=== PATIENT | male | born 1965 ===

== ENCOUNTER 2018-09-13 12:22 | Inpatient (IN) | payer MEDICAID ==
[2018-09-13 13:32] LABS: BASO % 0.3 % (0.0-2.0); EOS % 0.3 % (0.0-4.0); LYMPH # 2.8 K/uL (1.0-4.3); LYMPH % 40.3 % (20.0-40.0); MEAN CELL VOLUME 94.1 fl (80.0-94.0); MEAN CORPUSCULAR HEMOGLOBIN 30.8 pg (27.0-31.0); MEAN CORPUSCULAR HGB CONC 32.7 g/dL (33.0-37.0); MEAN PLATELET VOLUME 8.2 fl (7.2-11.7); MONO # 0.8 K/uL (0.0-0.8); MONO % 11.1 % (0.0-10.0); NEUT # 3.4 K/uL (1.8-7.0); RBC 4.86 Mil/uL (4.40-5.90); RED CELL DISTRIBUTION WIDTH 13.9 % (11.5-14.5)
[2018-09-13 13:39] LABS: ALBUMIN 4.9 g/dL (3.5-5.0); ALT/SGPT 179 U/L (21-72); AST/SGOT 141 U/L (17-59); BLOOD UREA NITROGEN 11 mg/dl (9-20); CALCIUM 9.3 mg/dL (8.4-10.2); GFR NON-AFRICAN AMERICAN > 60
--- NOTE | 2018-09-13 13:53 | RAD ---
Date of service: 09/13/2018 HISTORY: medical clearance COMPARISON: No prior. TECHNIQUE: Chest PA and lateral FINDINGS: LUNGS: No active pulmonary disease. PLEURA: No significant pleural effusion identified. No pneumothorax apparent. CARDIOVASCULAR: No aortic atherosclerotic calcification present. Normal cardiac size. No pulmonary vascular congestion. OSSEOUS STRUCTURES: No significant abnormalities. VISUALIZED UPPER ABDOMEN: Normal. OTHER FINDINGS: None. IMPRESSION: No active disease.
[2018-09-13 14:41] LABS: URINE BILIRUBIN NEGATIVE (NEGATIVE); URINE BLOOD NEGATIVE (NEGATIVE); URINE COLOR YELLOW (YELLOW); URINE GLUCOSE (UA) NEG (Normal); URINE LEUKOCYTE ESTERASE NEG Leu/uL (Negative); URINE PROTEIN NEGATIVE (NEGATIVE); URINE UROBILINOGEN 0.2-1.0 mg/dL (0.2-1.0)
[2018-09-13 14:42] LABS: URINE CLARITY CLEAR (Clear)
--- NOTE | 2018-09-13 15:07 | ED PDOC ---
HPI: Psych/Substance Abuse Chief Complaint (Nursing): Psychiatric Evaluation Chief Complaint (Provider): Psychiatric Evaluation History Per: Patient History/Exam Limitations: no limitations Onset/Duration Of Symptoms: Days (GUITAR TEACHER) Current Symptoms Are (Timing): Still Present Additional Complaint(s): Sam Saldaña is a 53 year old male with a past medical history of depression and bipolar disorder, who was referred to the emergency department by his psychiatric clinic. Patient follows up with clinic in [place] but has not been since February. Upon his appointment today, his psychiatric PA reports that he expressed SI and increased depression because of family stressors at home. Patient was told to come into the ED for evaluation. PMD: No provider Past Medical History Reviewed: Historical Data, Nursing Documentation, Vital Signs Vital Signs: Last Vital Signs Temp 97 F L 09/13/18 12:27 Pulse 82 09/13/18 12:27 Resp 18 09/13/18 12:27 BP 155/90 H 09/13/18 12:27 Pulse Ox 100 09/13/18 12:27 - Medical History PMH: Bipolar Disorder, Depression, Hepatitis (C) Other PMH: liver cirrhosis - Surgical History Surgical History: No Surg Hx - Family History Family History: States: Unknown Family Hx - Social History Alcohol: Occasional Drugs: Other (IV drug use (last use: x1 week ago)) - Immunization History Hx Tetanus Toxoid Vaccination: Yes - Home Medications Home Medications: Ambulatory Orders Medication Instructions Recorded traMADol [Ultram] 50 mg PO Q4 PRN 09/13/18 - Allergies Allergies/Adverse Reactions: Allergies Allergy/AdvReac Type Severity Reaction Status Date / Time No Known Allergies Allergy Verified 09/13/18 12:27 Review of Systems ROS Statement: Except As Marked, All Systems Reviewed And Found Negative Psych: Positive for: Suicidal ideation, Other (depression) Physical Exam - Reviewed Nursing Documentation Reviewed: Yes Vital Signs Reviewed: Yes - Physical Exam Appears: Positive for: Non-toxic, No Acute Distress Head Exam: Positive for: ATRAUMATIC, NORMOCEPHALIC Skin: Positive for: Normal Color, Warm, Dry Eye Exam: Positive for: Normal appearance, EOMI, PERRL Neck: Positive for: Normal, Painless ROM, Supple Cardiovascular/Chest: Positive for: Regular Rate, Rhythm. Negative for: Murmur Respiratory: Positive for: Normal Breath Sounds. Negative for: Respiratory Distress Gastrointestinal/Abdominal: Positive for: Normal Exam, Soft. Negative for: Tenderness Back: Positive for: Normal Inspection. Negative for: L CVA Tenderness, R CVA Tenderness, Vertebral Tenderness Extremity: Positive for: Normal ROM. Negative for: Pedal Edema, Deformity Neurologic/Psych: Positive for: Alert, Oriented (x3). Negative for: Motor/Sensory Deficits - Laboratory Results Result Diagrams: 09/13/18 13:20 09/13/18 13:20 - ECG ECG Rhythm: Positive for: Sinus Rhythm (normal ) Rate: 82 O2 Sat by Pulse Oximetry: 100 (RA) Pulse Ox Interpretation: Normal Medical Decision Making Medical Decision Making: Time: 12:39 Plan: --urine screen --EKG --Alcohol serum --CMP --Drug Screen --CBC with differential --Chest x-ray --UA Time: 13:49 Chest X-ray FINDINGS: LUNGS: No active pulmonary disease. PLEURA: No significant pleural effusion identified. No pneumothorax apparent. CARDIOVASCULAR: No aortic atherosclerotic calcification present. Normal cardiac size. No pulmonary vascular congestion. OSSEOUS STRUCTURES: No significant abnormalities. VISUALIZED UPPER ABDOMEN: Normal. OTHER FINDINGS: None. IMPRESSION: No active disease. EKG Reading: NSR at 82 bpm no acute ischemic changes qTC 443 ms Crisis evaluated patient at bedside and case was discussed with Dr. Ontiveros by crisis. Patient's labs reveal mildly elevated transaminases, which are unchanged from previous labs. Scribe Attestation: Documented by Terry Merino, acting as a scribe for Ling Alexandra PA-C. Provider Scribe Attestation: All medical record entries made by the Scribe were at my direction and persona donnelly dictated by me. I have reviewed the chart and agree that the record accurately reflects my personal performance of the history, physical exam, medical decision making, and the department course for this patient. I have also personally directed, reviewed, and agree with the discharge instructions and disposition. Disposition - Clinical Impression Clinical Impression: Depression - Patient ED Disposition Is Patient to be Admitted: Yes Counseled Patient/Family Regarding: Studies Performed, Diagnosis - Disposition Disposition Time: 17:07 Condition: STABLE
[2018-09-13 15:16] LABS: OPIATES, UR NEGATIVE (NEGATIVE); PHENCYCLIDINE, UR NEGATIVE (NEGATIVE)
[2018-09-13 15:17] LABS: BARBITURATES, UR NEGATIVE (NEGATIVE); BENZODIAZEPINES, UR NEGATIVE (NEGATIVE)
[2018-09-13 17:07] VITALS: O2SAT 100
[2018-09-13] MEDS ORDERED: Magnesium Hydroxide Susp 30 ml UD PO PRN (17:41)
[2018-09-13] MEDS ORDERED: Alum-Mag Hydrox-Simethicone Susp (30 mL) PO PRN (17:41)
[2018-09-13] MEDS ORDERED: DiphenhydrAMINE 50 mg/ml Inj IM PRN (18:04)
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
--- NOTE | 2018-09-13 18:45 | CARD ---
APPROVED REPORT Date of service: 09/13/2018 EKG Measurement Heart [id number] <Conclusion> Sinus rhythm with premature atrial complexes Voltage criteria for left ventricular hypertrophy Abnormal ECG
--- NOTE | 2018-09-13 19:18 | CP.PCM.CON ---
History of Present Illness - History of Present Illness History of Present Illness: Chief Complaint - pt was admitted for suicidal ideation, Hospitalist team consulted to manage medical problem HPI: 53 y/o gent with history of Polysubstance Abuse ( Alcohol, Cocaine, Marijuana) , Hx of IVDU many years ago, Chronic Liver Didsease due to Hepatitis C and Alcohol, Depression was sent to [facility] for admission by his Psych provider due to suicidal ideation. History obtained from patient and his son Sam who is also his Surrogate Decision maker . According to patient, he has a long history of Drug abuse since he was young . Since he from his 4 years ago , his became depressed and started drinking more and went back to using drugs. He was diagnosed to have Hepatitis C and Chronic Liver Dis however since he had no insurance, he has not followed up on this. At present, he complains of feeling restless and has a slight epigastric discomfort. Denies headache, no chest pain, no SOB. Review of Systems - Review of Systems All systems: reviewed and no additional remarkable complaints except - Constitutional Constitutional: Fatigue. absent: Chills, Fever, Headache - EENT Eyes: absent: Change in Vision Ears: absent: Decreased Hearing Nose/Mouth/Throat: absent: Nasal Congestion, Nasal Discharge - Cardiovascular Cardiovascular: absent: Chest Pain, Leg Edema, Leg Ulcers, Orthopnea - Gastrointestinal Gastrointestinal: Heartburn. absent: Belching, Bloating, Nausea, Vomiting - Genitourinary Genitourinary: absent: Difficulty Urinating - Integumentary Additional comments: thickened skin patches extensor surface - Neurological Neurological: absent: Focal Weakness, Headaches, Loss of Vision - Psychiatric Psychiatric: Depression, Suicidal Ideation - Endocrine Endocrine: absent: Polydipsia, Polyphagia, Polyuria - Hematologic/Lymphatic Hematologic: absent: Easy Bleeding, Easy Bruising Past Patient History - Infectious Disease Hx of Infectious Diseases: None - Tetanus Immunizations Tetanus Immunization: Unknown - Past Medical History & Family History Past Medical History?: Yes Past Family History: Reviewed and not pertinent - Past Social History Smoking Status: Heavy Smoker > 10 Cigarettes Daily Chewing Tobacco Use: No Cigar Use: No 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) Alcohol: > 2 Drinks/Day Drugs: Cannabis, Cocaine, Other (IV drug use (last use: x1 week ago)) Home Situation {Lives}: Alone Domestic Violence: Negative - CARDIAC Hx Cardiac Disorders: No Hx Hypertension: No - PULMONARY Hx Tuberculosis: No - NEUROLOGICAL HX Cerebrovascular Accident: No Hx Seizures: No - HEENT Hx HEENT Problems: No - RENAL Hx Chronic Kidney Disease: No - ENDOCRINE/METABOLIC Hx Endocrine Disorders: No - HEMATOLOGICAL/ONCOLOGICAL Hx Cancer: No Hx Hepatitis C: Yes Hx Human Immunodeficiency Virus (HIV): No - INTEGUMENTARY Hx Dermatological Problems: Yes Hx Eczema: Yes Hx Psoriasis: Yes - MUSCULOSKELETAL/RHEUMATOLOGICAL Hx Musculoskeletal Disorders: Yes Hx Arthritis: Yes Other/Comment: pt has hx of shoulder surgery - GASTROINTESTINAL Other/Comment: Chronic Liver Dis - Hep C - GENITOURINARY/GYNECOLOGICAL Hx Sexually Transmitted Disorders: No - PSYCHIATRIC Hx Anxiety: Yes Hx Bipolar Disorder: Yes Hx Depression: Yes Hx Physical Abuse: No Hx Sexual Abuse: No Hx Substance Use: Yes - SURGICAL HISTORY Hx Surgeries: Yes Hx Orthopedic Surgery: Yes Other/Comment: Cranial surgery when he was young - has metal plate - ANESTHESIA Hx Anesthesia: Yes Hx Anesthesia Reactions: No Meds Allergies/Adverse Reactions: Allergies Allergy/AdvReac Type Severity Reaction Status Date / Time No Known Allergies Allergy Verified 09/13/18 12:27 - Medications Medications: Current Medications Acetaminophen (Tylenol 325mg Tab) 650 mg PO Q4 PRN PRN Reason: moderate pain (4-7) Al Hydrox/Mg Hydrox/Simethicone (Maalox Plus 30 Ml) 30 ml PO Q4 PRN PRN Reason: Dyspepsia Diphenhydramine HCl (Benadryl) 50 mg PO Q6 PRN PRN Reason: Extrapyramidal Symptoms Diphenhydramine HCl (Benadryl) 50 mg PO HS PRN PRN Reason: Sleep Diphenhydramine HCl (Benadryl) 50 mg IM Q6 PRN PRN Reason: EPS / DYSTONIC REACTION Haloperidol (Haldol) 5 mg PO Q4 PRN PRN Reason: Agitation Haloperidol Lactate (Haldol) 5 mg IM Q4 PRN PRN Reason: Agitation, Unable to Take PO Lorazepam (Ativan) 2 mg IM Q4 PRN PRN Reason: Anxiety/Agitation,Unable PO Lorazepam (Ativan) 1 mg PO Q6 SHIVAM Magnesium Hydroxide (Milk Of Magnesia) 30 ml PO HS PRN PRN Reason: Constipation Pneumococcal Polyvalent Vaccine (Pneumovax 23 Vaccine) 0.5 ml IM .ONCE ONE Stop: 09/14/18 09:01 Physical Exam - Constitutional Appears: Non-toxic, In Acute Distress, Agitated - Head Exam Head Exam: NORMAL INSPECTION, NORMOCEPHALIC - Eye Exam Eye Exam: EOMI, Normal appearance, PERRL Pupil Exam: NORMAL ACCOMODATION - ENT Exam ENT Exam: Mucous Membranes Moist, Normal External Ear Exam - Neck Exam Neck exam: Positive for: Full Rom. Negative for: Meningismus - Respiratory Exam Respiratory Exam: NORMAL BREATHING PATTERN. absent: Chest Wall Tenderness, Rales, Wheezes, Respiratory Distress - Cardiovascular Exam Cardiovascular Exam: REGULAR RHYTHM, +S1, +S2 - GI/Abdominal Exam GI & Abdominal Exam: Normal Bowel Sounds, Soft. absent: Tenderness - Extremities Exam Extremities exam: Positive for: full ROM, normal capillary refill. Negative for: calf tenderness, pedal edema - Back Exam Back exam: FULL ROM. absent: CVA tenderness (L), CVA tenderness (R) - Neurological Exam Neurological exam: Alert, CN II-XII Intact, Oriented x3, Reflexes Normal - Psychiatric Exam Psychiatric exam: Anxious, Depressed - Skin Skin Exam: Dry Additional comments: hyperkeratotic patches extensor surface Results - Vital Signs Recent Vital Signs: Last Vital Signs Temp 98.6 F 09/13/18 16:56 Pulse 82 09/13/18 17:07 Resp 18 09/13/18 17:39 BP 130/89 09/13/18 16:56 Pulse Ox 100 09/13/18 17:07 - Labs Result Diagrams: 09/13/18 13:20 09/13/18 13:20 Labs: Laboratory Results - last 24 hr 09/13/18 09/13/18 09/13/18 13:20 13:20 14:16 WBC 7.0 RBC 4.86 Hgb 15.0 Hct 45.7 MCV 94.1 H MCH 30.8 MCHC 32.7 L RDW 13.9 Plt Count 235 MPV 8.2 Neut % (Auto) 48.0 L Lymph % (Auto) 40.3 H [place] % (Auto) 11.1 H Eos % (Auto) 0.3 Baso % (Auto) 0.3 Neut # (Auto) 3.4 Lymph # (Auto) 2.8 [place] # (Auto) 0.8 Eos # (Auto) 0.0 Baso # (Auto) 0.0 Sodium 140 Potassium 3.9 Chloride 98 Carbon Dioxide 29 Anion Gap 17 BUN 11 Creatinine 0.7 L Est GFR ( Amer) > 60 Est GFR (Non-Af Amer) > 60 Random Glucose 155 H Calcium 9.3 Total Bilirubin 1.0 AST 141 H ALT 179 H Alkaline Phosphatase 49 Total Protein 9.7 H Albumin 4.9 Globulin 4.8 H Albumin/Globulin Ratio 1.0 Urine Color Urine Clarity Urine pH Ur Specific [place] Urine Protein Urine Glucose (UA) Urine Ketones Urine Blood Urine Nitrate Urine Bilirubin Urine Urobilinogen Ur Leukocyte Esterase Urine RBC (Auto) Urine Microscopic WBC Urine Opiates Screen Negative Urine Methadone Screen Negative Ur Barbiturates Screen Negative Ur Phencyclidine Scrn Negative Ur Amphetamines Screen Negative U Benzodiazepines Scrn Negative U Oth Cocaine Metabols Positive H U Cannabinoids Screen Positive H Alcohol, Quantitative < 10 09/13/18 14:16 WBC RBC Hgb Hct MCV MCH MCHC RDW Plt Count MPV Neut % (Auto) Lymph % (Auto) [place] % (Auto) Eos % (Auto) Baso % (Auto) Neut # (Auto) Lymph # (Auto) [place] # (Auto) Eos # (Auto) Baso # (Auto) Sodium Potassium Chloride Carbon Dioxide Anion Gap BUN Creatinine Est GFR ( Amer) Est GFR (Non-Af Amer) Random Glucose Calcium Total Bilirubin AST ALT Alkaline Phosphatase Total Protein Albumin Globulin Albumin/Globulin Ratio Urine Color Yellow Urine Clarity Clear Urine pH 6.0 Ur Specific [place] 1.016 Urine Protein Negative Urine Glucose (UA) Neg Urine Ketones Negative Urine Blood Negative Urine Nitrate Negative Urine Bilirubin Negative Urine Urobilinogen 0.2-1.0 Ur Leukocyte Esterase Neg Urine RBC (Auto) < 1 Urine Microscopic WBC < 1 Urine Opiates Screen Urine Methadone Screen Ur Barbiturates Screen Ur Phencyclidine Scrn Ur Amphetamines Screen U Benzodiazepines Scrn U Oth Cocaine Metabols U Cannabinoids Screen Alcohol, Quantitative - EKG Data EKG Interpreted by: Myself EKG shows normal: Sinus rhythm Rate: Normal - Imaging and Cardiology Chest x-ray Status: Image reviewed by me, Report reviewed by me Assessment & Plan (1) Polysubstance abuse Status: Chronic (2) Abnormal LFTs Status: Chronic (3) Hepatitis C Status: Chronic (4) Psoriasis Status: Chronic (5) Heavy smoker Status: Chronic (6) Depression Status: Chronic - Assessment and Plan (Free Text) Assessment: (1) Polysubstance abuse Status: Chronic Abuses Alcohol, Cocaine , Marijuana Hx of Heroin IVDU - when he was young Pt is restless at present - may be starting to have withdrawal sxs Ativan prn start Thiamine (2) Abnormal LFTs Status: Chronic sec to Hep C and Alcohol Avoid Hepatotoxic meds (3) Hepatitis C Status: Chronic advised pt and son to see Liver specialist - son's wif works at [employer] and son will bring pt there for further mgt (4) Psoriasis Status: Chronic start steroid ointment (5) Heavy smoker Status: Chronic start Nicotine patch (6) Depression with suicidal ideation - mgt per Psych Status: Chronic
[2018-09-14 08:39] LABS: T4 10.8 ug/dl (5.5-11.0)
[2018-09-14] MEDS ORDERED: Pneumococcal 23-Valent Vaccine IM ONE (09:00)
[2018-09-14] MEDS ORDERED: Influenza Vaccine (5 YR UP)/PF 60 MCG/0.5 ML SYR IM ONE (09:00)
--- NOTE | 2018-09-14 16:33 | PCM.PSYCH ---
Initial Psychiatric Evaluation - Initial Psychiatric Evaluation Type of Admission: Voluntary Legal Status: Capacity Chief Complaint (in patient's own words): I am depressed and I have thoughts to hurt myself History of Present Illness and Precipitating Events: pt is 53 ys old male with previous diagnosis of bipolar disorder and polysubstance use, currently non compliant with medications or follow up, presented to ER , referred by provider due to severe depression, anxiety and suicidal ideation pt reported has been abstinent from drugs, but three years ago was from and children, was charged with domestic violence, became depressed, relapse on cocaine , heroin and alcohol, pt also recently lost his job was non compliant with medications, reported poor sleep, poor appetite, edginess anxiety and irritability, passive suicidal ideation, no active plan on the unit Current Medications: Active Medications Generic Name Dose Route Start Last Admin Trade Name Freq PRN Reason Stop Dose Admin Al Hydrox/Mg Hydrox/Simethicone 30 ml 09/13/18 17:41 Maalox Plus 30 Ml PO Q4 PRN Dyspepsia Diphenhydramine HCl 50 mg 09/13/18 17:41 Benadryl PO Q6 PRN Extrapyramidal Symptoms Diphenhydramine HCl 50 mg 09/13/18 17:54 09/13/18 21:31 Benadryl PO 50 mg HS PRN Administration Sleep Diphenhydramine HCl 50 mg 09/13/18 18:04 Benadryl IM Q6 PRN EPS / DYSTONIC REACTION Famotidine 20 mg 09/13/18 20:00 09/14/18 08:41 Pepcid PO 20 mg BID SHIVAM Administration Fluocinonide 1 applic 09/13/18 20:00 09/14/18 08:42 Lidex 0.05% Oint TOP 1 applic BID SHIVAM Administration Gabapentin 100 mg 09/14/18 17:00 Neurontin PO TID SHIVAM Haloperidol 5 mg 09/13/18 17:41 Haldol PO Q4 PRN Agitation Haloperidol Lactate 5 mg 09/13/18 17:41 Haldol IM Q4 PRN Agitation, Unable to Take PO Lorazepam 2 mg 09/13/18 17:41 Ativan IM Q4 PRN Anxiety/Agitation,Unable PO Lorazepam 1 mg 09/13/18 19:18 09/14/18 08:41 Ativan PO 1 mg Q6 PRN Administration Agitation Magnesium Hydroxide 30 ml 09/13/18 17:41 Milk Of Magnesia PO HS PRN Constipation Nicotine 1 patch 09/14/18 09:00 Nicoderm Cq TD DAILY SHIVAM Quetiapine Fumarate 25 mg 09/14/18 17:00 Seroquel PO BID SHIVAM Quetiapine Fumarate 100 mg 09/14/18 22:00 Seroquel PO HS SHIVAM Thiamine HCl 100 mg 09/14/18 09:00 09/14/18 08:41 Vitamin B1 Tab PO 100 mg DAILY SHIVAM Administration Past Psychiatric History - Past Psychiatric History Explanation of prior treatment: bipolar disorder, hx of non compliance History of Abuse: alcohol, opiate, cannabis , cocaine Pertinent Medical Hx (Current Medical&Sleep Prob, Allergies): Allergies Allergy/AdvReac Type Severity Reaction Status Date / Time No Known Allergies Allergy Verified 09/13/18 12:27 traMADol [Ultram] 50 mg PO Q4 PRN 09/13/18 Mental Status Examination - Personal Presentation Personal Presentation: Looks older than stated age - Affect Affect: Constricted, Depressed - Motor Activity Motor Activity: Psychomotor Agitation - Reliability in Providing Information Reliability in Providing Information: Fair - Speech Speech: Relevant - Mood Mood: Depressed, Anxious - Formal Thought Process Formal Thought Process: Circumstantial - Obsessions/Compulsions Obsessions: No Compulsions: No - Cognitive Functions Orientation: Person, Place, Situation Sensorium: Alert Attention/Concentration: Easily distracted Abstract Thinking: [place] Judgement: Imparied, as evidence by: Poor judgement, Imparied, as evidence by: Lack of insight into illness - Risk Risk: Suicidal, Withdrawal, Diminished functioning - Strength & Assets Inventory Strength & Assets Inventory: Employment history - Limitations Additional comments: poor compliance DSM 5 DX - DSM 5 DSM 5 Diagnosis: substance induced mood disorder bipolar disorder depressed polysubstance use - Recommended/Plan of Treatment Treatment Recommendations and Plan of Treatment: start seroquel 25mg bid seroquel 100mg qhs neurontin 100mg tid motivational group and supportive therapy
--- NOTE | 2018-09-15 12:39 | PCM.PYCHPN ---
Psychiatric Progress Note - Psychiatric Progress Note Patient seen today, length of contact: Pt evaluated, case discussed w/ team, chart reviewed Patient Chief Complaint: Depression/Insomnia Problems Identified/Issues Discussed: Pt continues to report feeling depressed w/ poor sleep and anxiety. He continues to report poor appetite and was irritable w/ financial writer. He denies active suicidal ideation/plan/intent. No AH/VH. No adverse effects to medications reported. Medication Change: Yes (Increase Seroquel) Medical Record Reviewed: Yes Consults ordered or reviewed: Medicine consult Mental Status Examination - Cognitive Function Orientation: Person, Place, Situation, Time Memory: Intact Association: WNL Fund of Knowledge: [facility] Decription of patient's judgement and insights: Poor I/J - Mood Mood: Depressed, Anxious - Affect Affect: Constricted, Depressed - Speech Speech: Appropriate - Formal Thought Process Formal Thought Process: Circumstantial Psychotic Thoughts and Behaviors: Denies AH/VH/paranoia - Suicidal Ideation Suicidal Ideation: No - Homicidal Ideation Homicidal Ideation: No Goal/Treatment Plan - Goal/Treatment Plan Need for Continued Stay: Severe depression anxiety Progress Toward Problem(s) and Goals/Treatment Plan: Bipolar Disorder, current episode depressed; Substance Induced Mood Disorder; Cocaine/Heroin/Alcohol Use Disorders -Increase Seroquel -Continue Neurontin -Individual and group therapy -Psychoeducation -Disposition planning
--- NOTE | 2018-09-16 14:17 | PCM.PYCHPN ---
Psychiatric Progress Note - Psychiatric Progress Note Patient seen today, length of contact: Pt evaluated, case discussed w/ team, chart reviewed Patient Chief Complaint: I still have poor sleep Problems Identified/Issues Discussed: pt on evaluation reported feeling less anxious, continues to have poor sleep with early insomnia, discussed increasing seroquel, no reported side effects, pt encouraged to attend groups, motivational therapy provided in reference to e ffect of substance use on current mental status pt denied any current suicidal or homicidal ideation denied perceptual disturbances Medical Problems: bipolar disorder, hx of non compliance DSM 5 Symptoms Update: bipolar disorder depressed Medication Change: Yes (Increase Seroquel) Medical Record Reviewed: Yes Mental Status Examination - Cognitive Function Orientation: Person, Place, Situation, Time Memory: Intact Attention: WNL Concentration: WNL Association: WNL Fund of Knowledge: WNL - Mood Mood: Depressed, Anxious - Affect Affect: Constricted, Depressed - Speech Speech: Appropriate - Formal Thought Process Formal Thought Process: Circumstantial Psychotic Thoughts and Behaviors: pt denied perceptual disturbances, non elicited - Suicidal Ideation Suicidal Ideation: No - Homicidal Ideation Homicidal Ideation: No Goal/Treatment Plan - Goal/Treatment Plan Need for Continued Stay: Severe depression anxiety Progress Toward Problem(s) and Goals/Treatment Plan: increase seroquel 25mg bid. 200mg qhs start trazodone 50mg qhs neurontin 100mg tid motivational group and supportive therapy
--- NOTE | 2018-09-17 14:36 | PCM.PYCHPN ---
Psychiatric Progress Note - Psychiatric Progress Note Patient seen today, length of contact: Pt evaluated, case discussed w/ team, chart reviewed Patient Chief Complaint: reports feeling calmer, less depressed at night is anxious chronic insomnia, pt reports in past has responded to mirtazepine 7.5mg po hs, visited with family reported family notes improvement Problems Identified/Issues Discussed: alteration in mood alteration in cognition alteration in self care alteration in sleep alteration in communication: primary language [place] Medical Problems: per chart Diagnostic Results: per psychiatry per medicine per nursing per renal social worker per recreational therapy DSM 5 Symptoms Update: alteration sleep alteration in mood ' alteration in cognition Medication Change: No (discontinue trazodone decreased sleep start mirtazepine 7.5mg HS ) Medical Record Reviewed: Yes Consults ordered or reviewed: pt seen by hospitalist Mental Status Examination - Cognitive Function Orientation: Person, Place, Situation, Time Memory: Intact Attention: WNL Concentration: WNL Association: WNL Fund of Knowledge: WN Decription of patient's judgement and insights: impaired judgment - Mood Mood: Depressed, Anxious - Affect Affect: Constricted, Depressed - Speech Speech: Appropriate - Formal Thought Process Formal Thought Process: Circumstantial - Suicidal Ideation Suicidal Ideation: No - Homicidal Ideation Homicidal Ideation: No Goal/Treatment Plan - Goal/Treatment Plan Need for Continued Stay: Severe depression anxiety Progress Toward Problem(s) and Goals/Treatment Plan: inpt milieu review sleep hygiene discontinue trazodone questionable benefit start mirtazepine 7.5mg po hs continue other rx-adjust meds per clinical status discharge planning in progress access prn ind[place] speaking staff Estimated Date of D/C: 09/20/18 - Smoking Cessation Smoking Cessation Initiated: No Reason for not providing: pt defers
--- NOTE | 2018-09-18 17:03 | PCM.PYCHPN ---
Psychiatric Progress Note - Psychiatric Progress Note Patient seen today, length of contact: Pt evaluated, case discussed w/ team, chart reviewed Patient Chief Complaint: reports sleep better 7 hours plus with mirtazepine no reported am somnolence. mood continues to improve. denies rikki vacilallations in mood. staff report pt has been adherent with medications and seen about unit. pt reports interest in continuing treatment upon discharge. expresses desire to return to work. current medications helping without reported side effecs. Problems Identified/Issues Discussed: alteration in mood alteration in cognition alteration in self care alteration in sleep alteration in communication: primary language [place] Medical Problems: per chart Diagnostic Results: per psychiatry per medicine per nursing per social media marketing specialist per recreational therapy DSM 5 Symptoms Update: mood improving, sleep improving Medication Change: No Medical Record Reviewed: Yes Consults ordered or reviewed: pt seen by hospitalist Mental Status Examination - Cognitive Function Orientation: Person, Place, Situation, Time Memory: Intact Attention: WNL Concentration: WNL Association: WNL Fund of Knowledge: WNL Decription of patient's judgement and insights: impaired judgment improving - Mood Mood: Neutral - Affect Affect: Broad, Depressed - Speech Speech: Soft - Formal Thought Process Formal Thought Process: Circumstantial - Suicidal Ideation Suicidal Ideation: No - Homicidal Ideation Homicidal Ideation: No Goal/Treatment Plan - Goal/Treatment Plan Need for Continued Stay: Severe depression anxiety Progress Toward Problem(s) and Goals/Treatment Plan: inpt milieu review sleep hygiene adjust meds per clinical status discharge planning in progress requests to continue treatment at [facility] upon discharge access prn [place] speaking staff Estimated Date of D/C: 09/19/18 - Smoking Cessation Smoking Cessation Initiated: No Reason for not providing: defers
[2018-09-19 09:06] VITALS: BP 140/90; PULSE 82; RESP 18; TEMP 98.5
--- NOTE | 2018-09-19 12:22 | PCM.PYCHDC ---
Mental Status Examination - Mental Status Examination Orientation: Person, Place, Situation Memory: Intact Mood: Neutral Affect: Broad Speech: Appropriate Attention: WNL Concentration: WNL Association: WNL Fund of Knowledge: WNL Formal Thought Process: No Impairment Description of patient's judgement and insight: partial insight , fair judgment Psychotic Thoughts and Behaviors: pt denied perceptual disturbances, non elicited Suicidal Ideation: No Current Homicidal Ideation?: No Discharge Summary - Discharge Note Reason for Hospitalization: pt is 53 ys old male with previous diagnosis of bipolar disorder and polysubstance use, currently non compliant with medications or follow up, presented to ER , referred by provider due to severe depression, anxiety and suicidal ideation pt reported has been abstinent from drugs, but three years ago was from and children, was charged with domestic violence, became depressed, relapse on cocaine , heroin and alcohol, pt also recently lost his job was non compliant with medications, reported poor sleep, poor appetite, edginess anxiety and irritability, passive suicidal ideation, no active plan on the unit Consultations:: List each consultation separately and include: 1. Reason for request. 2. Findings. 3. Follow-up Summary of Hospital Course include:: 1. Description of specific treatment plan utilized for patients during their course of treatmen. 2. Summarize the time- course for resolution of acute symptoms and/or regressed behaviors. 3. Describe issues identified and worked on during hospitalization. 4. Describe medication utilized. 5. Describe medical problems identified and treated. 6. Reassessment of suicide risk Summary of Hospital Course: pt on admission presented with depressed mood, , irritability , edginess and anxiety pt was started on neurontin 100mg tid , seroquel for depression and mood stabilization, remeron for depression and sleep motivational therapy was provided in reference to substance use pt was compliant with medications, no reported side effects, attended groups on discharge pt was advised about risk of relapse and possible overdose pt mental status on discharge was stable denied suicidal or homicidal ideation denied perceptual disturbances pt referred by social media director to out patient [facility] - Diagnosis (1) Depression Current Visit: Yes Status: Chronic - Final Diagnosis (DSM 5) Condition upon Discharge: STABLE DSM 5: bipolar disorder MRE depressed severe opiate abuse cocaine abuse cannabis abuse Disposition: HOME/ ROUTINE Prescriptions/Medication Reconciliation: Famotidine [Pepcid] 20 mg PO BID 30 Days #60 tab Fluocinonide 0.05% Ointment [Lidex 0.05% Oint] 1 applic TOP BID 7 Days #1 tube Gabapentin [Neurontin] 100 mg PO TID 30 Days #90 cap Mirtazapine [Remeron] 7.5 mg PO HS 30 Days #30 tab Nicotine 14 mg/24 hr [Nicoderm CQ] 1 patch TD DAILY 30 Days #30 patch QUEtiapine [SEROquel] 200 mg PO HS 30 Days #30 tab QUEtiapine [Seroquel] 25 mg PO BID 30 Days #60 tab - Smoking Cessation Smoking Cessation Medication prescribed: Yes - Antipsychotic Medications Pt discharged on 2 or more routine antipsychotic medications: No
== END 2018-09-19 14:00 | disposition home or self-care (01) | DRG 753 ==
LOC: H.ER 12:22 → H.ERHOLD 14:59 → H.PSYCH 17:29
PROVIDERS: ADMIT Psychiatry & Neurology Psychiatry; ATTEND Psychiatry & Neurology Psychiatry
PROC: HZ57ZZZ Individual Psychotherapy for Substance Abuse Treatment, Motivational Enhancement (ICD-10-PCS; principal; 2018-09-13)
PROC: HZ59ZZZ Individual Psychotherapy for Substance Abuse Treatment, Supportive (ICD-10-PCS; 2018-09-13)
PROC: HZ56ZZZ Individual Psychotherapy for Substance Abuse Treatment, Psychoeducation (ICD-10-PCS; 2018-09-13)
PROC: GZHZZZZ Group Psychotherapy (ICD-10-PCS; 2018-09-13)
PROC: 3E0234Z Introduction of Serum, Toxoid and Vaccine into Muscle, Percutaneous Approach (ICD-10-PCS; 2018-09-14)
PROC: 3E02340 Introduction of Influenza Vaccine into Muscle, Percutaneous Approach (ICD-10-PCS; 2018-09-14)
DX: F31.4 Bipolar disorder, current episode depressed, severe, without psychotic features (principal); R45.851 Suicidal ideations; Z91.14 Patient's other noncompliance with medication regimen; K74.69 Other cirrhosis of liver; Z91.19 Patient's noncompliance with other medical treatment and regimen; L40.9 Psoriasis, unspecified; B18.2 Chronic viral hepatitis C; F17.210 Nicotine dependence, cigarettes, uncomplicated; L85.9 Epidermal thickening, unspecified; Z56.0 Unemployment, unspecified; G47.00 Insomnia, unspecified; F11.10 Opioid abuse, uncomplicated; F12.10 Cannabis abuse, uncomplicated; F14.10 Cocaine abuse, uncomplicated; F41.9 Anxiety disorder, unspecified; Z23 Encounter for immunization